=== PATIENT | female | born 1990 | race Caucasian/White ===

== ENCOUNTER 2017-11-12 23:10 | Emergency (ER) | payer OTHER ==
[2017-11-12] MEDS: CYCLOBENZAPRINE 10 MG TAB PO (23:53)
[2017-11-12] MEDS: IBUPROFEN 800 MG TAB PO (23:53)
== END 2017-11-13 00:29 | disposition home or self-care (01) ==
LOC: M ED 23:10
DX: S39.012A Strain of muscle, fascia and tendon of lower back, initial encounter (principal); X50.0XXA Overexertion from strenuous movement or load, initial encounter; Y92.9 Unspecified place or not applicable; Y93.9 Activity, unspecified; Y99.9 Unspecified external cause status; Z72.0 Tobacco use
CPT/HCPCS: 99282